=== PATIENT | female | born 1960 | race Caucasian/White ===

== ENCOUNTER 2016-07-17 18:47 | Observation (INO) | payer BC ==
[~2016-07-17] VITALS: Ht 154.9 cm; Wt 83.6 kg
[2016-07-17] MEDS ORDERED: ATORVASTATIN CA10 MG PO (19:27)
[2016-07-17 19:36] LABS: MCHC 33.5 G/DL (30.0-36.0); MCV 80.7 FL (83-99); MEAN PLAT.VOLUME 9.6 uM^3 (9.5-12.4); PLATELET COUNT 388 K/uL (156-360); RBC DIS.WIDTH-CV 13.9 % (11.8-14.6); RBC DIS.WIDTH-SD 40.7 % (39-53); RED BLOOD COUNT 5.33 M/uL (3.80-5.20); WHITE BLOOD COUNT 12.5 K/uL (4.1-10.2)
[2016-07-17 19:49] LABS: CHLORIDE 108 mEq/L (99-109); POTASSIUM 4.1 mEq/L (3.7-5.4); SODIUM 140 mEq/L (136-147)
[2016-07-17 19:51] LABS: GLUCOSE 108 mg/dL (70-99)
[2016-07-17 19:52] LABS: ANION GAP 15 MEQ/L (2-14); BASOPHIL COUNT 0.1 K/uL (0-0.1); EOSINOPHIL (%) 0.6 % (0-5); EOSINOPHIL COUNT 0.1 K/uL (0-0.3); IMMATURE GRANULOCYTE (%) 0.2 % (0.0-0.7); IMMATURE GRANULOCYTE COUNT 0.3 K/uL; LYMPHOCYTE COUNT 1.4 K/uL (1.0-2.8); MONOCYTE (%) 5.5 % (3-12); MONOCYTE COUNT 0.7 K/uL (0-0.8); NEUTROPHIL (%) 82.2 % (45-76); NEUTROPHIL COUNT 10.2 K/uL (1.8-6.4)
[2016-07-17 19:55] LABS: GFR ESTIMATE (CALCULATED) > 59 mL/min/; UREA NITROGEN (BUN) 18 mg/dL (9-23)
[2016-07-17 20:00] LABS: TROP-I INTERPRETATION NEGATIVE; TROPONIN-I < 0.01 ng/mL (0.0-0.30)
[2016-07-17 20:02] LABS: D-DIMER ELISA 0.32 mg/L FEU (< 0.57)
[2016-07-17 20:43] LABS: TOTAL BILIRUBIN 0.3 mg/dL (0.0-1.0)
[2016-07-17 20:44] LABS: ALKALINE PHOSPHATASE 84 IU/L (3-129)
[2016-07-17 20:47] LABS: DIRECT BILIRUBIN 0.1 mg/dL (0.0-0.3)
[2016-07-17 20:48] LABS: LIPASE 13 U/L (1.0-51.0)
[2016-07-17] MEDS ORDERED: ASPIR 8181 M1 PO (21:35)
[2016-07-17] MEDS ORDERED: MEVACOR40 MG PO (21:35)
[2016-07-17] MEDS ORDERED: ASCORBIC ACID100 MG PO (21:36)
[2016-07-17] MEDS ORDERED: VITAMIN D-32000 UNI2 PO (21:36)
[2016-07-17] MEDS ORDERED: B-COMPLEX-VITA1 EACH PO (21:36)
[2016-07-17] MEDS ORDERED: FISH OIL300 MG PO (21:36)
[2016-07-18 01:02] VITALS: BP 117/59
[2016-07-18 03:15] LABS: TROP-I INTERPRETATION NEGATIVE; TROPONIN-I < 0.01 ng/mL (0.0-0.30)
[2016-07-18 04:17] VITALS: BP 101/59
[2016-07-18 04:17] LABS: HDL CHOLESTEROL 31 MG/DL (Desirable>=50); LDL CHOLESTEROL 75 mg/dL (Desirable<100); NON-HDL CHOLESTEROL 100 mg/dL (Desirable<160); TOTAL CHOLESTEROL 131 mg/dL (Desirable<200); TRIGLYCERIDES 127 MG/DL (Normal: <150)
[2016-07-18 08:00] VITALS: BP 115/61
[2016-07-18 09:48] LABS: TROP-I INTERPRETATION NEGATIVE; TROPONIN-I < 0.01 ng/mL (0.0-0.30)
[2016-07-18 10:12] LABS: ANION GAP 9 MEQ/L (2-14); CHLORIDE 106 MEQ/L (99-109); GFR ESTIMATE (CALCULATED) > 59 mL/min/; GLUCOSE 104 mg/dL (70-99); POTASSIUM 4.6 MEQ/L (3.7-5.4); SAMPLE HEMOLYSIS CHECK 0; SAMPLE ICTERIC CHECK 0; SAMPLE LIPEMIA CHECK 0; SODIUM 142 MEQ/L (136-147); UREA NITROGEN (BUN) 15 mg/dL (9-23)
[2016-07-18] MEDS ORDERED: PANTOPRAZOLE SO40 MG PO (12:01)
== END 2016-07-18 12:32 | disposition home or self-care (01) ==
LOC: EME 18:47 → 5WEST 22:46 → EDOF 22:46 → 5WEST 07-18 00:22
PROVIDERS: Hospitalist; Physician Assistant Medical
DX: R07.89 Other chest pain (principal); R23.2 Flushing; E78.5 Hyperlipidemia, unspecified; E66.9 Obesity, unspecified; Z68.34 Body mass index [BMI] 34.0-34.9, adult; D72.829 Elevated white blood cell count, unspecified; Z79.82 Long term (current) use of aspirin; Z79.891 Long term (current) use of opiate analgesic; Z82.49 Family history of ischemic heart disease and other diseases of the circulatory system
CPT/HCPCS: 71020; 80048; 80061; 80076; 83690; 84484; 85025; 85027; 85379; 93005; 99281; 99285; G0378; J2270; J2765; S0028